=== PATIENT | female | born 2000 ===

== ENCOUNTER 2021-07-23 19:05 | Emergency (ER) | payer OTHER ==
[2021-07-23 23:03] LABS: Bilirubin Neg (Negative); Blood, Urine 10 (Negative); Clarity Clear (Clear); Glucose, Urine (Dipstick) Normal (Negative); Ketone, Urine Negative (Negative); Leukocyte Negative (Negative); Nitrite Negative (Negative); Protein, Urine (Dipstick) 15 mg/dl (Neg-Trace); Specific Gravity, Urine 1.025 (1.002-1.036); Urobilinogen Normal mg/dL (Less than 2)
[2021-07-23] MEDS ORDERED: cefTRIAXone\\ROCEPHIN 500 MG VIAL ONE (23:05)
[2021-07-23] MEDS ORDERED: Lidocaine 1% MPF 2 ML VIAL ONE (23:06)
[2021-07-23 23:11] LABS: WBC/HPF 0-3 HPF (0-3)
[2021-07-23 23:12] LABS: Bacteria/HPF Rare-Few HPF (None Seen); Mucous/LPF 4+ LPF (<2+); RBC/HPF 0-3 HPF (0-3)
[2021-07-25 21:35] LABS: Chlamydia by PCR Not Detected (NotDetected); GC by PCR Not Detected (NotDetected)
== END 2021-07-23 23:11 | disposition home or self-care (01) ==
LOC: CSHERS 19:05
DX: N89.8 Other specified noninflammatory disorders of vagina (principal); Z20.2 Contact with and (suspected) exposure to infections with a predominantly sexual mode of transmission
CPT/HCPCS: 81003; 81015; 87480; 87491; 87510; 87591; 87660; 96372; 99283; J0696